=== PATIENT | female | born 1980 | race Two or more races ===

== ENCOUNTER 2018-03-02 06:56 | Day surgery (SDC) | payer BC ==
[2018-03-02] VITALS (7 sets, daily range): BP systolic 101–122; BP diastolic 63–74
[~2018-03-02] VITALS: Ht 172.7 cm; Wt 65.8 kg
[2018-03-02] MEDS ORDERED: LR 1000ml 1,000 ML IVLG SCH ×2 (07:00→07:54)
[2018-03-02] MEDS ORDERED: fentaNYL 100 mcg/2 mL IV ONE (07:16)
[2018-03-02] MEDS ORDERED: Midazolam 2mg/2ml Inj ONE (07:16)
[2018-03-02] MEDS ORDERED: OMEPRAZOLE40 M1 ORAL (07:28)
--- NOTE | 2018-03-02 07:50 | Anethesia Preoperative Eval ---
Anesthesia Pre-op PMH/ROS General Date of Evaluation: Mar 02, 2018 Time of Evaluation: 07:49 Anesthesiologist: Joshua ASA Score: ASA 2 Mallampati Score Class I : Soft palate, uvula, fauces, pillars visible Class II: Soft palate, uvula, fauces visible Class III: Soft palate, base of uvula visible Class IV: Only hard plate visible Mallampati Classification: Class II Surgeon: Jun Diagnosis: Abdominal pain Surgical Procedure: EGD Anesthesia History: none Family History: no anesthesia problems Allergies: Coded Allergies: No Known Allergies (Unverified , 03/02/18) Medications: see eMAR Past Medical History Cardiovascular: Denies: HTN, CAD, GA, valve dz, arrhythmia, other Pulmonary: Denies: asthma, COPD, ISABELL, other Gastrointestinal/Genitourinary: Reports: GERD; Denies: CRI, ESRD, other Neurologic/Psychiatric: Denies: dementia, CVA, depression/anxiety, TIA, other Endocrine: Denies: DM, hypothyroidism, steroids, other HEENT: Denies: cataract (L), cataract (R), glaucoma, GAKONA (L), GAKONA (R), other Hematology/Immune: Denies: anemia, DVT, bleeding disorder, other Musculoskeletal/Integumentary: Denies: OA, RA, DJD, DDD, edema, other PMH Narrative: as above PSxH Narrative: dental Sx Anesthesia Pre-op Phys. Exam Physician Exam Last Vital Signs Date Time Temp Pulse Resp B/P (MAP) Pulse Ox O2 Delivery O2 Flow Rate FiO2 03/02/18 07:24 97.0 80 16 122/74 (90) 100 97.0 03/02/18 07:24 Room Air Constitutional: NAD Neurologic: CN 2-12 intact Cardiovascular: RRR, no M/R/G Respiratory: CTA Gastrointestinal: S/NT/ND Airway Exam Mallampati Score: Class II MO: full Neck: flexible ROM: full Teeth: intact Dentures: no upper, no lower Anesthesia Pre-op A/P Labs Urine Test Test 03/02/18 07:05 Urine HCG, Qualitative Negative (NEGATIVE) Risk Assessment & Plan Assessment: ASA 2 Plan: MAC Status Change Before Surgery: No Pre-Antibiotics Drug: none Cliff Lewis MD Mar 02, 2018 07:50
[2018-03-02] MEDS ORDERED: fentaNYL 100 mcg/2 mL IV PRN (08:00)
[2018-03-02] MEDS ORDERED: Propofol 200mg/20ml IV ONE (08:00)
[2018-03-02] MEDS ORDERED: DiphenhydrAMINE 50mg/ml Inj IVP PRN (08:00)
--- NOTE | 2018-03-02 08:07 | Short Stay Surgery H&P ---
History of Present Illness History of Present Illness Chief Complaint see typed H&P HPI Nicole Cota is a 37 year old female who was admitted on for Abdominal Pain Patient History Allergies: Coded Allergies: No Known Allergies (Unverified , 03/02/18) Medication History Scheduled Omeprazole (Omeprazole), 40 MG ORAL DAILY, (Reported) Physical Exam Vital Signs Last Vital Signs Date Time Temp Pulse Resp B/P (MAP) Pulse Ox O2 Delivery O2 Flow Rate FiO2 03/02/18 07:24 97.0 80 16 122/74 (90) 100 97.0 03/02/18 07:24 Room Air Labs Laboratory Tests Test 03/02/18 07:05 Urine HCG, Qualitative Negative (NEGATIVE) Plan Attestation Are the patient's medical conditions optimized for surgery? Nuno Juarez MD Mar 02, 2018 08:07
--- NOTE | 2018-03-02 08:07 | Pre-Procedure Note/Attestation ---
Pre-Procedure Note/Attestation Complete Prior to Procedure Planned Procedure: not applicable Procedure Narrative: EGD Indications for Procedure Pre-Operative Diagnosis: abd pain Attestation I attest that I discussed the nature of the procedure; its benefits; risks and complications; and alternatives (and the risks and benefits of such alternatives ), prior to the procedure, with the patient (or the patient's legal sales representative womens health). I attest that, if there was a reasonable possibility of needing a blood transfusion, the patient (or the patient's legal sales representative womens health) was given the [facility] standardized written summary, pursuant to the Alexis Tom Blood Safety Act ([place] Health and Safety Code # 1645, as amended). I attest that I re-evaluated the patient just prior to the surgery and that there has been no change in the patient's H&P, except as documented below: Nuno Juarez MD Mar 02, 2018 08:07
--- NOTE | 2018-03-02 08:28 | Endoscopy Procedure Note ---
Endoscopy Procedure Note General Indication for Procedure: abd pain Procedures Performed: EGD Operative Findings/Diagnosis: normal Specimen: yes Pt Tolerated Procedure Well: Yes Estimated Blood Loss: none Anesthesia Anesthesiologist: Dr. Quezada Anesthesia: MAC Medications Medication Given: see anesthesia record Inserted Devices Implant(s) used?: No GI Core Measures 50 yrs or older w/o bx or poly: Not Applicable 10yrs. F/U not recommended: Not Applicable If not recommended, why?: Nuno Juarez MD Mar 02, 2018 08:28
--- NOTE | 2018-03-02 08:29 | Brief Operative Note ---
Immediate Post Operative Note Operative Note Chief Complaint: abd pain Pre-op Diagnosis: abd pain Procedure: EGD Bx Post-op Diagnosis: normal Surgeon: timur Anesthesiologist: see report Anesthesia: MAC Specimen: yes Complications: none Condition: stable Fluids: recorded Estimated Blood Loss: none Drains: none Implant(s) used?: No Nuno Juarez MD Mar 02, 2018 08:29
--- NOTE | 2018-03-02 08:34 | Immediate Post-Op Evaluation ---
Immediate Post-Op Evalulation Immediate Post-Op Evalulation Procedure: EGD with Bx Date of Evaluation: Mar 02, 2018 Time of Evaluation: 08:33 IV Fluids: 600 Blood Products: none Estimated Blood Loss: none Urinary Output: none Blood Pressure Systolic: 111 Blood Pressure Diastolic: 75 Pulse Rate: 64 Respiratory Rate: 20 O2 Sat by Pulse Oximetry: 99 Temperature (Fahrenheit): 98.2 Pain Score (1-10): 1 Nausea: No Vomiting: No Complications none Patient Status: awake, patent, none Hydration Status: adequate Cliff Lewis MD Mar 02, 2018 08:34
--- NOTE | 2018-03-02 08:36 | 48 Hour Post Anesthesia Eval ---
Post Anesthesia Evaluation Procedure: EGD with Bx Date of Evaluation: Mar 02, 2018 Time of Evaluation: 09:20 Blood Pressure Systolic: 118 0: 72 Pulse Rate: 68 Respiratory Rate: 20 Temperature (Fahrenheit): 97.8 O2 Sat by Pulse Oximetry: 98 Airway: patent Nausea: No Vomiting: No Pain Intensity: 1 Hydration Status: adequate Cardiopulmonary Status: stable Mental Status/LOC: patient returned to baseline Follow-up Care/Observations: n/a Post-Anesthesia Complications: none Follow-up care needed: ready to discharge Cliff Lewis MD Mar 02, 2018 08:36
--- NOTE | 2018-03-02 19:15 | Operative Note - Dictated ---
DATE OF OPERATION: 03/02/2018 GASTROENTEROLOGY PROCEDURE REPORT PROCEDURE: Upper gastrointestinal endoscopy with biopsy. SURGEON: Nuno Juarez M.D. ANESTHESIA: Please see the separate anesthesiologist's notes for details. PRE-ENDOSCOPIC DIAGNOSIS: Abdominal pain. POST-ENDOSCOPIC DIAGNOSIS: Normal upper endoscopy, status post biopsies. DESCRIPTION OF PROCEDURE: The procedure, its risks, indications, alternatives, and possible complications were explained to the patient and informed consent was obtained. The diagnostic upper endoscope was introduced through the oropharynx and advanced to the duodenum without difficulty. The endoscope was then gradually withdrawn and the mucosa examined carefully. Examination of the upper gastrointestinal mucosa did not reveal any abnormalities. Biopsies of the duodenum, antrum, lower esophagus, and mid esophagus were sent to pathology for review. The endoscope was removed. The patient was sent to recovery in good condition. COMPLICATIONS: None. RECOMMENDATIONS: 1. Follow up biopsy results. 2. Outpatient followup. Nuno Juarez M.D. DR: Diomedes JOB#: [id number] CC:
== END 2018-03-02 10:30 | disposition home or self-care (01) ==
LOC: GAS 06:56
DX: R10.9 Unspecified abdominal pain (principal); K21.9 Gastro-esophageal reflux disease without esophagitis
CPT/HCPCS: 43239; 81025; 82962; J2250; J2704; J3010; 94003; 94150